=== PATIENT | male | born 1950 | race Caucasian/White ===

== ENCOUNTER → 2019-07-03 | Outpatient (CLI) | payer MEDICARE | END | disposition home or self-care (01) | LOC: PLD 10:46 → LAB SHORT 10:46 | DX: D48.5 Neoplasm of uncertain behavior of skin (principal) | CPT/HCPCS: 88305; 88312 ==

== ENCOUNTER 2019-10-02 07:27 | Day surgery (SDC) | payer MEDICARE ==
[~2019-10-02] VITALS: Ht 190.5 cm; Wt 142.7 kg
[~2019-10-02 07:27] MED LIST: Coreg12.5 MG PO; DAILY VALUE1 EACH PO; DICL75ER PO; INSULANPEN SC; LOSA50 PO; Novolog100 UNIT/1; OMEPRAZOLE20 MG PO; Triglide160 MG PO
--- NOTE | 2019-10-02 08:14 | NUR ---
Lungs clear T/O to Auscultation. Pre-Op teaching done. Pt verbalizes understanding. Patient states colon prep results clear. History, Chart, Medications and Allergies reviewed before start of procedure. Patient States Post-Procedure ride home has been arranged.
--- NOTE | 2019-10-02 08:42 | NUR ---
10/02/19 0842 ALLISON LINDQUIST History, Chart, Medications and Allergies reviewed before start of procedure.MONITOR INTACT WITH CONTINUOUS PULSE OXIMETRY AND INTERMITTENT BP.3-LEAD EKG REVIEWED WITH PHYSICIAN PRIOR TO START OF PROCEDURE.O2 VIA N/C INTACT THROUGHOUT SEDATION/PROCEDURE.
== END 2019-10-02 09:34 | disposition home or self-care (01) ==
LOC: ORSCMMR 07:27 → ORD 08:30 → ORSCMMR 09:34
PROVIDERS: Internal Medicine Gastroenterology
PROC: 0DBN8ZX Excision of Sigmoid Colon, Via Natural or Artificial Opening Endoscopic, Diagnostic (ICD-10-PCS; principal; 2019-10-02 08:30)
DX: Z12.11 Encounter for screening for malignant neoplasm of colon (principal); Z86.010 Personal history of colon polyps; K63.5 Polyp of colon; E11.9 Type 2 diabetes mellitus without complications; K21.9 Gastro-esophageal reflux disease without esophagitis; E78.00 Pure hypercholesterolemia, unspecified; I10 Essential (primary) hypertension; G47.30 Sleep apnea, unspecified; Z79.4 Long term (current) use of insulin; Z79.899 Other long term (current) drug therapy
CPT/HCPCS: 82947; 88305; J2250; J3010; J7120

== ENCOUNTER 2020-05-05 12:13 | Emergency (ER) | payer MEDICARE ==
[~2020-05-05] VITALS: Ht 190.5 cm; Wt 139.0 kg
[2020-05-05 12:58] LABS: BASOPHILS ABSOLUTE AUTO 0.03 K/mm3 (0.00-0.23); BASOPHILS PERCENT AUTO 0 % (0-2); EOSINOPHILS ABSOLUTE AUTO 0.09 K/mm3 (0.00-0.68); EOSINOPHILS PERCENT AUTO 1 % (0-6); Hematocrit 47.4 % (37.0-53.0); Hemoglobin 16.4 g/dL (13.5-17.5); IMMATURE GRAN ABSOLUTE AUTO 0.02 K/mm3 (0.00-0.10); IMMATURE GRAN PERCENT AUTO 0 % (0-1); LYMPHOCYTES ABSOLUTE AUTO 1.94 K/mm3 (0.84-5.20); LYMPHOCYTES PERCENT AUTO 28 % (21-46); MONOCYTES ABSOLUTE AUTO 0.49 K/mm3 (0.16-1.47); MONOCYTES PERCENT AUTO 7 % (4-13); Mean Corpuscular HGB 34.7 pg (26.0-34.0); Mean Corpuscular HGB Conc 34.6 g/dL (31.5-36.5); Mean Corpuscular Volume 100 fL (80-100); NEUTROPHILS ABSOLUTE AUTO 4.49 K/mm3 (1.96-9.15); NEUTROPHILS PERCENT AUTO 64 % (41-73); Platelet Count 196 K/mm3 (150-400); RDW Standard Deviation 48.4 fL (35.1-46.3); Red Blood Cell Count 4.72 M/mm3 (4.30-5.90); White Blood Cell Count 7.06 K/mm3 (4.00-11.30)
[2020-05-05 13:13] LABS: Alanine Aminotransfer (ALT/SGP 40 U/L (12-78); Albumin, Blood 4.3 g/dL (3.4-5.0); Albumin/Globulin Ratio 1.1 (0.8-1.8); Alk Phos 91 U/L (50-136); Anion Gap 4 mmol/L (6-16); Aspartate Aminotrans (AST/SGOT 16 U/L (12-37); Bilirubin, Total 0.5 mg/dL (0.1-1.0); Blood Urea Nitrogen 18 mg/dL (8-24); Bun/Creatinine Ratio 16.4 (12.0-20.0); CO2, Blood 27 mmol/L (21-32); Calcium, Blood 9.2 mg/dL (8.5-10.1); Chloride, Blood 111 mmol/L (98-108); Globulin, Blood 3.9 g/dL (2.2-4.0); Glomerular Filtration Rate >60 (60-); Glucose, Blood 162 mg/dL (70-99); Potassium, Blood 3.8 mmol/L (3.5-5.5); Sodium, Blood 142 mmol/L (136-145); Total Protein, Blood 8.2 g/dL (6.4-8.2); Troponin I <0.015 ng/mL (0.000-0.040)
[2020-05-05] MEDS ORDERED: DICL75ER PO (14:40)
[2020-05-05] MEDS ORDERED: JARDIANCE25 MG PO (14:40)
[2020-05-05] MEDS ORDERED: AMLO10 PO (14:40)
[2020-05-05] MEDS ORDERED: OMEP20ER PO (14:41)
[2020-05-05] MEDS ORDERED: CARV6.25 PO (14:41)
[2020-05-05] MEDS ORDERED: ATOR20 PO (14:41)
[2020-05-05] MEDS ORDERED: LOSA50 PO (14:41)
[2020-05-05] MEDS ORDERED: NOVOLOG100 UNIT/2 SC (14:42)
[2020-05-05] MEDS ORDERED: CENTRUM SILVER1 EAC9 PO (14:42)
[2020-05-05] MEDS ORDERED: BASAGLAR K100 UNIT/1 SC (14:42)
[2020-05-05] MEDS ORDERED: [UNRECOGNIZED DRUG - OTHER] PO (14:43)
== END 2020-05-05 15:03 | disposition home or self-care (01) ==
LOC: ER 12:13
PROVIDERS: Physician Assistant
DX: M75.42 Impingement syndrome of left shoulder (principal); Z88.2 Allergy status to sulfonamides; Z88.6 Allergy status to analgesic agent; Z79.899 Other long term (current) drug therapy; Z79.4 Long term (current) use of insulin; E11.9 Type 2 diabetes mellitus without complications; G47.30 Sleep apnea, unspecified
CPT/HCPCS: 36415; 71046; 80053; 84484; 85025; 93005; 93010; 99285-25

== ENCOUNTER 2022-06-03 06:08 | Day surgery (SDC) | payer MEDICARE ==
[~2022-06-03] VITALS: Ht 188 cm; Wt 142.1 kg
[~2022-06-03 06:08] MED LIST changes: +AMLO10 PO; +ATOR20 PO; +BASAGLAR K100 UNIT/1 SC; +CARV6.25 PO; +CENTRUM SILVER1 EAC9 PO; +HYDR1TAB94 PO; +HYDROCHLOROTH12.5 MG PO; +JARDIANCE25 MG PO; +LOSARTAN POTAS100 M1 PO; +LOSARTAN-HCTZ1 EACH PO; +NOVOLOG100 UNIT/2 SC; +OMEP20ER PO; +SIMBRINZA 1%-0.28 ML BOTHEYES; +Vitamin D2000 UNIT PO; +XALATAN2.5 ML BOTHEYES; +[UNRECOGNIZED DRUG - OTHER] PO
[2022-06-03] MEDS ORDERED: DICLOFENAC35 MG PO (06:29)
[2022-06-03] MEDS ORDERED: OMEP20ER PO (06:30)
--- NOTE | 2022-06-03 06:44 | NUR ---
06/03/22 0644 Mila Clarke AT 0664 [address]LEET [id number]
== END 2022-06-03 08:20 | disposition home or self-care (01) ==
LOC: ORSCSDS 06:08
PROVIDERS: Ophthalmology
PROC: 08RJ3JZ Replacement of Right Lens with Synthetic Substitute, Percutaneous Approach (ICD-10-PCS; principal; 2022-06-03 07:30)
DX: H25.11 Age-related nuclear cataract, right eye (principal); H21.81 Floppy iris syndrome; E10.36 Type 1 diabetes mellitus with diabetic cataract; I10 Essential (primary) hypertension; G47.33 Obstructive sleep apnea (adult) (pediatric); E66.01 Morbid (severe) obesity due to excess calories; Z68.41 Body mass index [BMI] 40.0-44.9, adult; Z79.84 Long term (current) use of oral hypoglycemic drugs; Z79.899 Other long term (current) drug therapy
CPT/HCPCS: 82947; J2001; J2250; J3010; J3301; J7040; V2632

== ENCOUNTER 2024-11-06 07:21 | Day surgery (SDC) | payer MEDICARE ==
[~2024-11-06] VITALS: Ht 182.9 cm; Wt 137.0 kg
[~2024-11-06 07:21] MED LIST changes: -BASAGLAR K100 UNIT/1 SC; +DICLOFENAC35 MG PO; +INSULANI; +NS 500 ML IV SCH
[2024-11-06 09:16] VITALS: BP 159/76
--- NOTE | 2024-11-06 09:19 | NUR ---
History, Chart, Medications and Allergies reviewed before start of procedure. Patient up to Ambulate independently. Gait steady. Pre-Op teaching done. Pt verbalizes understanding. Patient confirms NPO status and agrees with scheduled surgery. Patient States Post-Procedure ride home has been arranged.
--- NOTE | 2024-11-06 09:21 | NUR ---
11/06/24 0921 Kash aHzel MONITOR INTACT WITH CONTINUOUS PULSE OXIMETRY, CONTINUOUS END TITAL CO2, AND INTERMITTENT BLOOD PRESSURE.AND EKG ANESTHESIA PER TIFFANY NICHOLE
[2024-11-06 09:45] VITALS: BP 126/77
[2024-11-06 10:00] VITALS: BP 149/81
--- NOTE | 2024-11-06 10:19 | NUR ---
Patient up to Ambulate independently. Gait steady. Discharge instructions reviewed with patient. Patient verbalizes understanding. Copy given to patient to take home. Patient States Post-Procedure ride home has been arranged, REPORTS WILL BE HERE APPROX 11 AM. WILL BE TAKEN OUT IN W/C APPROX 11 AM. PT TOLERATING PO, REPORTS READY TO GO HOME, WAITING FOR RIDE.
== END 2024-11-06 10:45 | disposition home or self-care (01) ==
LOC: ORSCMMR 07:21 → ORD 09:00 → ORSCMMR 10:45
PROVIDERS: Internal Medicine Gastroenterology
PROC: 0DJD8ZZ Inspection of Lower Intestinal Tract, Via Natural or Artificial Opening Endoscopic (ICD-10-PCS; principal; 2024-11-06 09:00)
DX: Z12.11 Encounter for screening for malignant neoplasm of colon (principal); D12.8 Benign neoplasm of rectum; Z90.49 Acquired absence of other specified parts of digestive tract; E11.9 Type 2 diabetes mellitus without complications; I10 Essential (primary) hypertension; E78.00 Pure hypercholesterolemia, unspecified; G47.33 Obstructive sleep apnea (adult) (pediatric); E66.01 Morbid (severe) obesity due to excess calories; Z68.41 Body mass index [BMI] 40.0-44.9, adult; Z79.4 Long term (current) use of insulin; Z79.84 Long term (current) use of oral hypoglycemic drugs; Z79.899 Other long term (current) drug therapy
CPT/HCPCS: 82947; 88305; J7040